=== PATIENT | female | born 1940 | race Caucasian/White ===

== ENCOUNTER 2018-01-21 09:40 | Emergency (ER) | payer MEDICARE, OTHER ==
[~2018-01-21] VITALS: Ht 170.2 cm; Wt 70.3 kg
[~2018-01-21 09:40] MED LIST: Z.0.DIOVAN80 MG
--- OUTSIDE RECORDS SUMMARY | 2018-01-21 09:42 | XMS REPORT | Clinical Summary ---
Author Author [facility] Organization [facility] Address Unknown Phone Unavailable Care Team Providers Care Excavator Operator Name Role Phone Belkis Rock MD PCP Allergies Comments Active Allergy Reactions Severity Noted Date Adhesive Tape-Silicones 12/30/2017 Shellfish Derived Hives Medium 12/30/2017 Sulfa (Sulfonamide 12/21/2015 Antibiotics) Medications End Date Status Medication Sig Dispensed Refills Start Date Active metFORMIN (GLUCOPHAGE) TK 2 TS PO 3 500 MG tablet BID 6 Active loratadine (CLARITIN) 10 Take 10 mg by 0 mg tablet mouth. 3 times a week Active omega-3/dha/epa/fish oil Take 720 mg 0 (OMEGA-3 FISH OIL ORAL) by mouth daily. 2 in AM and 2 in PM Active cholecalciferol, vitamin Take 1,000 mg 0 D3, (VITAMIN D3 ORAL) by mouth daily. Active olmesartan medoxomil Take by mouth 0 (OLMESARTAN ORAL) daily. Active ibuprofen (ADVIL ORAL) Take by mouth 0 as needed. 12/30/2017 Discontinued omega-3 acid ethyl esters TK 1 C PO QID 3 (LOVAZA) 1 gram capsule 6 12/30/2017 Discontinued valsartan (DIOVAN) 160 MG TK 1 T PO D 3 tablet 6 Active Problems Problem Noted Date Malignant neoplasm of left female breast 12/21/2015 Cancer Staging: Clinical stage from 08/19/2001: Stage 0 (Tis (DCIS), N0, M0) - Signed by Carla Arboleda MD on 12/21/2015 Encounters Care Team Description Date Type Specialty Momo Qureshi MD Breast mass 01/16/2018 Hospital Radiology Encounter Momo Qureshi MD Breast mass 01/16/2018 Hospital Radiology Encounter Momo Qureshi MD Breast mass (Primary Dx) 12/30/2017 Transcribe Access Orders Sally Quezada RN 12/30/2017 Telephone Radiology Momo Qureshi MD Personal history of malignant neoplasm of breast 12/29/2017 Hospital Radiology Encounter Momo Qureshi MD Personal history of malignant neoplasm of breast 12/29/2017 Hospital Radiology Encounter Momo Qureshi MD Personal history of malignant neoplasm of breast (Primary Dx) 11/11/2017 Transcribe Access Orders after 01/20/2017 Social History Date Tobacco Use Types Packs/Day Years Used Never Smoker Sex Assigned at Date Recorded Not on file Industry Job Start Date Occupation Not on file Not on file Not on file Travel End Travel History Travel Start No recent travel history available. Last Filed Vital Signs Not on file Plan of Treatment Health Maintenance Due Date Last Done Comments COLON CANCER SCREENING 1992 SHINGRIX VACCINE (1 of 2) 1992 ZOSTER VACCINE 2002 PNEUMOCOCCAL 12/17/2007 POLYSACCHARIDE VACCINE AGE 65 AND OVER PNEUMOCOCCAL-13 12/17/2007 INFLUENZA VACCINE 09/17/2017 BREAST CANCER SCREENING 01/17/2020 01/16/2018, 12/29/2017, 12/29/2017, Additional history exists Procedures Comments Procedure Name Priority Date/Time Associated Diagnosis SURGICAL PATHOLOGY Routine 01/16/2018 REQUEST 3:19 PM [facility] MAMMO DIAGNOSTIC W CAD Routine 01/16/2018 Breast mass RIGHT 12:09 PM [facility] US BREAST BIOPSY RIGHT Routine 01/16/2018 Breast mass 11:44 AM [facility] US BREAST COMPLETE RIGHT Routine 12/29/2017 Personal history of 10:53 AM [facility] malignant neoplasm of breast MAMMO DIAGNOSTIC W CAD Routine 12/29/2017 Personal history of BILATERAL 10:33 AM [facility] malignant neoplasm of breast after 01/20/2017 Results * Surgical pathology request (01/16/2018 3:19 PM [facility]) [facility]OLOGY AND GENOMIC MEDICINE Surgical pathology report See link below for PDF Lab [facility] DEPART[facility] OF Report PATHOLOGY AND GENOMIC MEDICINE Result status This is Revised Report for [facility]PART[facility] OF [id number] PATHOLOGY AND GENOMIC MEDICINE Performing Organization Address City/State/Zipcode Phone Number [facility] DEPARTMENT OF [address] [place] [address] PATHOLOGY AND GENOMIC MEDICINE * Mammo Diagnostic w Cad Right (01/16/2018 12:09 PM [facility]) Addenda Addendum by Mady Seals MD on 01/19/2018 5:26 PM ADDENDUM #1 Final pathology results of the right breast ultrasound biopsy, 10:00 axis, are invasive ductal carcinoma, present in multiple cores, histologic grade 2/3. No DCIS component identified. Atypical ductal hyperplasia.The pathology results are malignant and concordant with imaging findings. Follow-up recommendation is for breast surgical and oncologic consultation. No post-biopsy complications were reported. Results were discussed via telephone with AARON Ralph, in the office of Dr. Qureshi on 01/19/2018. Dr. Qureshi to convey results to his patient. Narrative Performed At PROCEDURE: US BREAST BIOPSY RIGHT, MAMMO DIAGNOSTIC W CAD RIGHT 01/16/2018 11:00 [facility] AM INDICATION: Patient presents with a hypoechoic lesion visible by ultrasound in the 10 o'clock position of the right breast. COMPARISON: Diagnostic mammogram and right breast sonogram dated 12/29/2017. PROCEDURE: The procedure and risks were explained in detail to the patient.The patient understood and agreed to proceed. Using sterile technique, local anesthetic and ultrasound guidance, a small incision was made and a 14-gauge Bard core biopsy probe was placed with the cutting chamber immediately adjacent to the lesion.Multiple cores were obtained and submitted for histologic evaluation.A collagen plug with a radiopaque marker was placed at the biopsy site post procedure.Pathologic findings are pending at the time of dictation.A coil-shaped clip was utilized for this procedure. On post-biopsy mammogram, there is appropriate sampling of the lesion and marker is in good position. The procedure was completed without any apparent complication; good hemostasis was obtained, and the patient was discharged in good condition. IMPRESSION: 1. Ultrasound guided core biopsy right breast lesion at the 10:00 axis. Pathology pending. 2. Placement of biopsy marking clip (coil clip). This facility is accredited by [employer] for [employer]amm[employer]. A negative x-ray report should not delay biopsy if a dominant or clinically suspicious mass is present. Not all cancers are identified by x-ray. [id number] Procedure Note Hm Interface, Radiology Results Incoming - 01/16/2018 2:17 PM [facility] PROCEDURE: US BREAST BIOPSY RIGHT, MAMMO DIAGNOSTIC W CAD RIGHT 01/16/2018 11:00 AM INDICATION: Patient presents with a hypoechoic lesion visible by ultrasound in the 10 o'clock position of the right breast. COMPARISON: Diagnostic mammogram and right breast sonogram dated 12/29/2017. PROCEDURE: The procedure and risks were explained in detail to the patient. The patient understood and agreed to proceed. Using sterile technique, local anesthetic and ultrasound guidance, a small incision was made and a 14-gauge Bard core biopsy probe was placed with the cutting chamber immediately adjacent to the lesion. Multiple cores were obtained and submitted for histologic evaluation. A collagen plug with a radiopaque marker was placed at the biopsy site post procedure. Pathologic findings are pending at the time of dictation. A coil-shaped clip was utilized for this procedure. On post-biopsy mammogram, there is appropriate sampling of the lesion and marker is in good position. The procedure was completed without any apparent complication; good hemostasis was obtained, and the patient was discharged in good condition. IMPRESSION: 1. Ultrasound guided core biopsy right breast lesion at the 10:00 axis. Pathology pending. 2. Placement of biopsy marking clip (coil clip). This facility is accredited by [employer] for [employer]amm[employer]. A negative x-ray report should not delay biopsy if a dominant or clinically suspicious mass is present. Not all cancers are identified by x-ray. [id number] Performing Organization Address City/State/Zipcode Phone Number [facility] [address] [place] [address] * US Breast Biopsy Right (01/16/2018 11:44 AM [facility]) Addenda Addendum by Mady Seals MD on 01/19/2018 5:26 PM ADDENDUM #1 Final pathology results of the right breast ultrasound biopsy, 10:00 axis, are invasive ductal carcinoma, present in multiple cores, histologic grade 2/3. No DCIS component identified. Atypical ductal hyperplasia.The pathology results are malignant and concordant with imaging findings. Follow-up recommendation is for breast surgical and oncologic consultation. No post-biopsy complications were reported. Results were discussed via telephone with AARON Ralph, in the office of Dr. Qureshi on 01/19/2018. Dr. Qureshi to convey results to his patient. Narrative Performed At PROCEDURE: US BREAST BIOPSY RIGHT, MAMMO DIAGNOSTIC W CAD RIGHT 01/16/2018 11:00 HM [facility] AM INDICATION: Patient presents with a hypoechoic lesion visible by ultrasound in the 10 o'clock position of the right breast. COMPARISON: Diagnostic mammogram and right breast sonogram dated 12/29/2017. PROCEDURE: The procedure and risks were explained in detail to the patient.The patient understood and agreed to proceed. Using sterile technique, local anesthetic and ultrasound guidance, a small incision was made and a 14-gauge Bard core biopsy probe was placed with the cutting chamber immediately adjacent to the lesion.Multiple cores were obtained and submitted for histologic evaluation.A collagen plug with a radiopaque marker was placed at the biopsy site post procedure.Pathologic findings are pending at the time of dictation.A coil-shaped clip was utilized for this procedure. On post-biopsy mammogram, there is appropriate sampling of the lesion and marker is in good position. The procedure was completed without any apparent complication; good hemostasis was obtained, and the patient was discharged in good condition. IMPRESSION: 1. Ultrasound guided core biopsy right breast lesion at the 10:00 axis. Pathology pending. 2. Placement of biopsy marking clip (coil clip). This facility is accredited by [employer] for [employer]ammography. A negative x-ray report should not delay biopsy if a dominant or clinically suspicious mass is present. Not all cancers are identified by x-ray. [id number] Procedure Note Interface, Radiology Results Incoming - 01/16/2018 2:17 PM [facility] PROCEDURE: US BREAST BIOPSY RIGHT, MAMMO DIAGNOSTIC W CAD RIGHT 01/16/2018 11:00 AM INDICATION: Patient presents with a hypoechoic lesion visible by ultrasound in the 10 o'clock position of the right breast. COMPARISON: Diagnostic mammogram and right breast sonogram dated 12/29/2017. PROCEDURE: The procedure and risks were explained in detail to the patient. The patient understood and agreed to proceed. Using sterile technique, local anesthetic and ultrasound guidance, a small incision was made and a 14-gauge Bard core biopsy probe was placed with the cutting chamber immediately adjacent to the lesion. Multiple cores were obtained and submitted for histologic evaluation. A collagen plug with a radiopaque marker was placed at the biopsy site post procedure. Pathologic findings are pending at the time of dictation. A coil-shaped clip was utilized for this procedure. On post-biopsy mammogram, there is appropriate sampling of the lesion and marker is in good position. The procedure was completed without any apparent complication; good hemostasis was obtained, and the patient was discharged in good condition. IMPRESSION: 1. Ultrasound guided core biopsy right breast lesion at the 10:00 axis. Pathology pending. 2. Placement of biopsy marking clip (coil clip). This facility is accredited by [employer] for [employer]amm[employer]. A negative x-ray report should not delay biopsy if a dominant or clinically suspicious mass is present. Not all cancers are identified by x-ray. [id number] Performing Organization Address City/State/Zipcode Phone Number [facility] [address] [place] [address] * US Breast Complete Right (12/29/2017 10:53 AM [facility]) Narrative Performed At PROCEDURE: [facility] MAMMO DIAGNOSTIC W CAD BILATERAL, US BREAST COMPLETE RIGHT 12/29/2017 10:33 AM COMPARISON: Mammograms dated 10/2013 through 12/2016. Right breast ultrasound dated 09/20/2002. TECHNIQUE: Digital bilateral diagnostic mammography was performed and interpreted using computer-assisted detection. Hand-held high resolution sonographic images of the right breast(s) including all 4 quadrants and the retroareolar regions and right axilla (level I) were obtained with color Doppler imaging as needed. CLINICAL HISTORY: 77-year-old asymptomatic female with history of left breast cancer status post breast conserving therapy in 2001 presenting for annual evaluation. The patient has no current palpable breast complaints. FINDINGS: MAMMOGRAM: The breast parenchyma is heterogeneously dense which may obscure small masses.There are no new suspicious masses, calcifications or distortions in the left breast. A stable postsurgical scar with associated surgical clips is again seen in the left upper outer quadrant 2 o'clock position 4 cm from the nipple corresponding to the site of segmental mastectomy. There is no mammographic evidence of recurrence. Scattered bilateral similar appearing coarse popcorn-like and dystrophic calcifications are seen which are not significantly changed compared to previous examinations. In the lateral right breast 10 cm from the nipple, there is a 0.9 cm equal density asymmetry without associated calcifications or distortions which partially persists on spot magnification compression views in the CC projection. A potential correlate seen superiorly on the LM view 10 cm from the nipple also only partially effaces. There are no additional mammographic findings of concern in the right breast. ULTRASOUND: In the right 10 o'clock position 10 cm from the nipple, there is a subtle irregular hypoechoic mass with shadowing measuring 0.7 x 0.6 x 0.4 cm. This may represent a correlate for the right breast asymmetry identified by mammography. There are no additional sonographic findings of concern. There is no pathologic-appearing adenopathy within the imaged portions of the right axilla. IMPRESSION: 1. Suspicious subcentimeter mass in the upper outer right breast favored to correspond to an indeterminate right breast asymmetry. Ultrasound-guided biopsy is recommended to exclude malignancy. 2. Benign postsurgical changes of the left breast without specific mammographic or sonographic features of malignancy. 3. No pathologic appearing adenopathy within the imaged portions of the right axilla. BI-RADS Category 4. Suspicious. Recommend ultrasound guided biopsy of the right breast. The patient will be contacted for scheduling. Findings and recommendations were discussed with the patient at the time of the examination. This facility is accredited by [employer] for [employer]ammography. A negative x-ray report should not delay biopsy if a dominant or clinically suspicious mass is present. Not all cancers are identified by x-ray. [id number] Performing Organization Address City/State/Zipcode Phone Number [facility] [address] [place] [address] * Mammo Diagnostic w Cad Bilateral (12/29/2017 10:33 AM [facility]) Narrative Performed At PROCEDURE: [facility] MAMMO DIAGNOSTIC W CAD BILATERAL, US BREAST COMPLETE RIGHT 12/29/2017 10:33 AM COMPARISON: Mammograms dated 10/2013 through 12/2016. Right breast ultrasound dated 09/20/2002. TECHNIQUE: Digital bilateral diagnostic mammography was performed and interpreted using computer-assisted detection. Hand-held high resolution sonographic images of the right breast(s) including all 4 quadrants and the retroareolar regions and right axilla (level I) were obtained with color Doppler imaging as needed. CLINICAL HISTORY: 77-year-old asymptomatic female with history of left breast cancer status post breast conserving therapy in 2001 presenting for annual evaluation. The patient has no current palpable breast complaints. FINDINGS: MAMMOGRAM: The breast parenchyma is heterogeneously dense which may obscure small masses.There are no new suspicious masses, calcifications or distortions in the left breast. A stable postsurgical scar with associated surgical clips is again seen in the left upper outer quadrant 2 o'clock position 4 cm from the nipple corresponding to the site of segmental mastectomy. There is no mammographic evidence of recurrence. Scattered bilateral similar appearing coarse popcorn-like and dystrophic calcifications are seen which are not significantly changed compared to previous examinations. In the lateral right breast 10 cm from the nipple, there is a 0.9 cm equal density asymmetry without associated calcifications or distortions which partially persists on spot magnification compression views in the CC projection. A potential correlate seen superiorly on the LM view 10 cm from the nipple also only partially effaces. There are no additional mammographic findings of concern in the right breast. ULTRASOUND: In the right 10 o'clock position 10 cm from the nipple, there is a subtle irregular hypoechoic mass with shadowing measuring 0.7 x 0.6 x 0.4 cm. This may represent a correlate for the right breast asymmetry identified by mammography. There are no additional sonographic findings of concern. There is no pathologic-appearing adenopathy within the imaged portions of the right axilla. IMPRESSION: 1. Suspicious subcentimeter mass in the upper outer right breast favored to correspond to an indeterminate right breast asymmetry. Ultrasound-guided biopsy is recommended to exclude malignancy. 2. Benign postsurgical changes of the left breast without specific mammographic or sonographic features of malignancy. 3. No pathologic appearing adenopathy within the imaged portions of the right axilla. BI-RADS Category 4. Suspicious. Recommend ultrasound guided biopsy of the right breast. The patient will be contacted for scheduling. Findings and recommendations were discussed with the patient at the time of the examination. This facility is accredited by [employer] for Mammography. A negative x-ray report should not delay biopsy if a dominant or clinically suspicious mass is present. Not all cancers are identified by x-ray. [id number] Performing Organization Address City/State/Zipcode Phone Number [facility] [address] [place] [address] after 01/20/2017 Insurance Payer Benefit Subscriber ID Type Phone Address Plan / Group HU[employer]NA MEDICARE HUMANA xxxxxxxxx PPO MEDICARE PPO/PFFS/E [facility] Advance Directives Patient has advance care planning documents on file. For more information, greg e contact: Jay Perera [address] [place] [address]
[2018-01-21] MEDS ORDERED: METFORMIN HCL500 MG PO (10:38)
[2018-01-21] MEDS ORDERED: BENICAR20 MG PO (10:38)
[2018-01-21] MEDS ORDERED: FISH OIL OMEGA1 EACH PO (10:38)
--- NOTE | 2018-01-21 10:58 | Diagnostic Imaging Report ---
PROCEDURE:CXR 2 VIEW - HOPD COMPARISON:Patients [facility], DX, CHEST 2 VIEWS, 10/28/2011, 10:43. INDICATIONS:Right sided weakness FINDINGS:Cardiac silhouette is normal. Tortuous thoracic aorta. Blunting of the left costophrenic angle is stable. There are clips in the left breast. No infiltrates or nodules. Mass impression of the tracheal air column by an enlarged thyroid with deviation of the trachea to the right. This appears more prominent. There are degenerative changes of the spine. CONCLUSION: 1. Chronic changes involving the left lung base. 2. Mass impression of the trachea by an enlarged thyroid. Alex Agrawal D.O. Dictated by: Alex Agrawal D.O. on 01/21/2018 at 11:02 Electronically approved by: Alex Agrawal D.O. on 01/21/2018 at 11:08
--- NOTE | 2018-01-21 11:23 | Diagnostic Imaging Report ---
Exam: Head CT without contrast History: Left-sided weakness, possible CVA Comparison studies: None Technique: Axial images were obtained from the skull base to the vertex. Coronal and sagittal images reconstructed from the axial data. Dose modulation, iterative reconstruction, and/or weight based adjustment of the mA/kV was utilized to reduce the radiation dose to as low as reasonably achievable. Radiation dose: Total DLP: 961 mGy*cm. Estimated effective dose: DLP x 0.015 Intravenous contrast: None Findings: Scalp: No abnormalities. Bones: No fractures, blastic or lytic lesions. Brain sulci: Appropriate for age. Ventricles: Normal in size and configuration. No hydrocephalus. Extra-axial spaces: No masses, no fluid collection. Parenchyma: No abnormal densities. No masses, acute hemorrhage, acute or chronic vascular insults. Sellar/suprasellar region: No abnormalities. Craniocervical junction: Patent foramen magnum. No Chiari one malformation. Incidental findings: Calcified atherosclerosis in the carotid siphons and left intradural vertebral artery.. IMPRESSION: 1. No acute intracranial abnormalities. 2. Specifically, no mass, acute hemorrhage or acute cortical vascular infarcts. Signed by: Dr. Jose Stiles M.D. on 01/21/2018 11:20 AM
[2018-01-21] MEDS ORDERED: ASPIRIN 81 MG CHEW TAB PO ONE (12:00)
== END 2018-01-21 13:15 | disposition left against medical advice (07) ==
LOC: FSED 09:40
DX: R20.2 Paresthesia of skin (principal); R20.0 Anesthesia of skin; G45.9 Transient cerebral ischemic attack, unspecified; I10 Essential (primary) hypertension; E11.9 Type 2 diabetes mellitus without complications; Z85.3 Personal history of malignant neoplasm of breast
CPT/HCPCS: 70450; 71046; 80053; 82553; 84484; 85025; 85610; 93005; 99284